=== PATIENT | female | born 1995 | race American Indian/Alaskan Native ===

== ENCOUNTER 2017-12-14 23:40 | Emergency (ER) | payer OTHER ==
[2017-12-15 00:16] VITALS: BP 141/88; RESP 18; TEMP 98; O2SAT 100; BMI 26.4
--- NOTE | 2017-12-15 00:19 | ED PDOC ---
Arrival/HPI - General Time Seen by Provider: 12/14/17 23:52 Historian: Patient - History of Present Illness Narrative History of Present Illness (Text): 12/15/17 00:16 Janet Campos is a 22 year old female, currently 6 months , LNMP: June 2017, P:0, who presents to the Emergency department complaining of abdominal pain. Patient states she started experiencing worsening intermittent lower abdominal cramping 1-2 hours prior to arrival. Patient denies any vaginal bleeding or vaginal discharge. Patient states she is scheduled to delivery at [facility]. Patient also denies nausea, vomiting, diarrhea, urinary symptoms, back pain, or any other complaints. Time/Duration: 1-3 hours Symptom Onset: Gradual Symptom Course: Intermittent, Worsening Quality: Cramping Activities at Onset: Light Context: Home Past Medical History - Provider Review Nursing Documentation Reviewed: Yes Family/Social History - Physician Review Nursing Documentation Reviewed: Yes Family/Social History: Unknown Family HX Allergies/Home Meds Allergies/Adverse Reactions: Allergies No Known Allergies Allergy (Verified 12/15/17 02:01) Home Medications: Home Meds Medication Instructions Recorded Confirmed Vit No.126/Iron/Folic 1 tab PO DAILY 12/15/17 12/15/17 [Classic Tablet] Review of Systems - Physician Review All systems were reviewed & negative as marked: Yes - Review of Systems Constitutional: Normal. absent: Fevers Eyes: Normal ENT: Normal Respiratory: Normal. absent: SOB, Cough Cardiovascular: Normal. absent: Chest Pain Gastrointestinal: Abdominal Pain, Vomiting. absent: Diarrhea, Nausea Genitourinary Female: Normal. absent: Dysuria, Frequency, Urine Output Changes, Vaginal Bleeding, Vaginal Discharge Musculoskeletal: Normal. absent: Back Pain, Neck Pain Skin: Normal. absent: Rash Neurological: Normal. absent: Headache, Dizziness Endocrine: Normal Hemo/Lymphatic: Normal Psychiatric: Normal Physical Exam Vital Signs Reviewed: Yes Vital Signs Temp Pulse Resp BP Pulse Ox 12/15/17 00:15 98.0 F 87 18 141/88 100 Temperature: Afebrile Blood Pressure: Normal Pulse: Regular Respiratory Rate: Normal Appearance: Positive for: Well-Appearing, Non-Toxic, Comfortable Pain Distress: None Mental Status: Positive for: Alert and Oriented X 3 - Systems Exam Head: Present: Atraumatic, Normocephalic Pupils: Present: PERRL Extroacular Muscles: Present: EOMI Conjunctiva: Present: Normal Mouth: Present: Moist Mucous Membranes Neck: Present: Normal Range of Motion Respiratory/Chest: Present: Clear to Auscultation, Good Air Exchange. No: Respiratory Distress, Accessory Muscle Use Cardiovascular: Present: Regular Rate and Rhythm, Normal S1, S2. No: Murmurs Abdomen: No: Tenderness, Distention, Peritoneal Signs Back: Present: Normal Inspection Upper Extremity: Present: Normal Inspection. No: Cyanosis, Edema Lower Extremity: Present: Normal Inspection. No: Edema Neurological: Present: GCS=15, CN II-XII Intact, Speech Normal Skin: Present: Warm, Dry, Normal Color. No: Rashes Psychiatric: Present: Alert, Oriented x 3, Normal Insight, Normal Concentration Medical Decision Making ED Course and Treatment: 12/15/17 00:16 Impression: 22 year old female complaining intermittent lower abdominal cramping for 1-2 hours prior to arrival. Plan: -- Tylenol -- Heart Rate -- Reassess and disposition Progress Notes: 12/15/17 00:31 Case discussed with LEIGHANN Mayer business continuity planner at [facility], who is aware and agrees with plan. Accepts pt on transfer. Based upon the information available at the time of transfer, the medical benefits reasonably expected from the provision of medical treatment at [facility] outweigh the increased risk to the patient for transfer from this facility. I have described the inherent risks and benefits of the transfer to the patient, and patient agrees to transfer. I have spoken to LEIGHANN Mayer business continuity planner at [facility], who has agreed to accept transfer of the patient and provide further medical treatment at the receiving facility. At the time of transfer, copies of all medical records sent which related to the emergency condition for which the individual presented. These records include observations of signs or symptoms, preliminary clinical impression, treatment provided, results of any completed test and an informed written consent to the transfer. 12/15/17 00:55 Heart Rate: 155 bpm. 12/15/17 01:10 Pt taken for transfer to [facility] via [facility]. - Scribe Statement The provider has reviewed the documentation as recorded by the Ling Garrido Provider Scribe Attestation: All medical record entries made by the Scribbrian were at my direction and personally dictated by me. I have reviewed the chart and agree that the record accurately reflects my personal performance of the history, physical exam, medical decision making, and the department course for this patient. I have also personally directed, reviewed, and agree with the discharge instructions and disposition. Disposition/Present on Arrival - Present on Arrival Any Indicators Present on Arrival: No - Disposition Have Diagnosis and Disposition been Completed?: Yes Diagnosis: Premature labor Disposition: Transfer [facility] Disposition Time: 01:15 Condition: GOOD Forms: [employer] (Maltese)
[2017-12-15 03:54] VITALS: PULSE 88
== END 2017-12-15 01:00 | disposition short-term general hospital (02) ==
LOC: ED 23:40
DX: O60.02 Preterm labor without delivery, second trimester (principal); Z3A.24 24 weeks gestation of pregnancy